=== PATIENT | male | born 1955 | race Caucasian/White ===

== ENCOUNTER 2022-08-28 16:30 | Emergency (ER) | payer MEDICAID ==
[~2022-08-28] VITALS: Ht 170.2 cm; Wt 66.4 kg
[2022-08-28 16:41] VITALS: BP 144/85
[2022-08-28] MEDS ORDERED: LEVO750T68 PO (16:51)
[2022-08-28] MEDS ORDERED: HYDR-4527 PO (16:51)
[2022-08-28] MEDS ORDERED: DOXY50 PO (16:51)
[2022-08-28] MEDS ORDERED: DIPH25CA85 PO (17:16)
[2022-08-28] MEDS ORDERED: PRED-554 PO (17:16)
== END 2022-08-28 17:41 | disposition home or self-care (01) ==
LOC: EMS 16:50
DX: L25.9 Unspecified contact dermatitis, unspecified cause (principal)
CPT/HCPCS: 99283

== ENCOUNTER 2022-09-02 10:59 | Emergency (ER) | payer MEDICAID ==
[~2022-09-02] VITALS: Ht 170.2 cm; Wt 66.4 kg
[~2022-09-02 10:59] MED LIST: DIPH25CA85 PO; DOXY50 PO; HYDR-4527 PO; LEVO750T68 PO; PRED-554 PO
[2022-09-02 11:36] LABS: BASOPHILS % (AUTO) 0.4 % (0.0-2.0); EOSINOPHILS % (AUTO) 1.2 % (1.0-6.0); HEMATOCRIT 29.1 % (41-53); HEMOGLOBIN 8.5 g/dL (13.5-17.5); LYMPHOCYTES # (AUTO) 1.6 K/uL (1.0-4.8); LYMPHOCYTES % (AUTO) 28.4 % (22.0-44.0); MEAN CORPUSCULAR HEMOGLOBIN 16.7 pg (26.0-34.0); MEAN CORPUSCULAR VOLUME 58 fL (80-100); MONOCYTES # (AUTO) 0.5 K/uL (0.1-1.0); MONOCYTES % (AUTO) 7.9 % (2.0-9.0); NEUTROPHILS # (AUTO) 3.6 K/uL (1.8-7.7); NEUTROPHILS % (AUTO) 62.1 % (40.0-70.0); PLATELET COUNT (AUTO) 398 K/uL (150-450); RED BLOOD CELL COUNT(AUTO) 5.07 MIL/uL (4.50-5.90); RED CELL DISTRIBUTION WIDTH 21.4 % (11.5-14.5)
[2022-09-02 11:38] LABS: ANION GAP 8 mmol/L (8-16); CALCIUM, TOTAL 8.6 mg/dL (8.8-10.5); CARBON DIOXIDE 27 mmol/L (22-29); CHLORIDE 103 mmol/L (98-107); CREATININE 0.99 mg/dL (0.60-1.30); GLUCOSE,RANDOM 137 mg/dL (70-110); POTASSIUM 4.1 mmol/L (3.5-5.1); SODIUM SERUM 138 mmol/L (136-145); UREA NITROGEN, BLOOD 9 mg/dL (7-18)
[2022-09-02 11:40] LABS: GLOMERULAR FILTR. RATE CALC > 60 mL/min (>60)
[2022-09-02 11:49] LABS: ALANINE AMINOTRANSFERASE 22 U/L (12-78); ALBUMIN 3.4 g/dL (3.4-5.0); ALKALINE PHOSPHATASE 79 U/L (46-116); ASPARTATE AMINOTRANSFERASE 22 U/L (15-37); BILIRUBIN,TOTAL 0.5 mg/dL (0.1-1.0); TOTAL PROTEIN, SERUM 7.1 g/dL (6.4-8.2)
[2022-09-02] MEDS ORDERED: DOXY-354 PO (15:39)
[2022-09-02 15:42] VITALS: BP 139/82
== END 2022-09-02 15:44 | disposition home or self-care (01) ==
LOC: EMS 13:52
DX: L25.9 Unspecified contact dermatitis, unspecified cause (principal)
CPT/HCPCS: 80053; 85025; 99283